=== PATIENT | male | born 1955 | race Asian ===

== ENCOUNTER 2018-10-13 15:28 | Emergency (ER) | payer BC ==
[~2018-10-13] VITALS: Ht 167.6 cm; Wt 74.4 kg
[2018-10-13 15:47] VITALS: Ht 167.6 cm; Wt 74.4 kg
[2018-10-13 21:55] VITALS: BP 162/101
== END 2018-10-13 22:06 | disposition home or self-care (01) ==
LOC: ED 15:28
DX: T17.328A Food in larynx causing other injury, initial encounter (principal); I10 Essential (primary) hypertension; X58.XXXA Exposure to other specified factors, initial encounter; Y93.89 Activity, other specified; Y92.89 Other specified places as the place of occurrence of the external cause; Y99.8 Other external cause status